=== PATIENT | female | born 1940 | race Caucasian/White ===

== ENCOUNTER 2022-11-29 10:02 | Inpatient (IN) | payer MEDICARE ==
[~2022-11-29] VITALS: Ht 167.6 cm; Wt 77.1 kg
[2022-11-29] MEDS ORDERED: MORPHINE SULFATE 2 MG/1 ML DISP.SYRIN IV ONE (11:00)
[2022-11-29] MEDS ORDERED: ONDANSETRON 4 MG/2 ML VIAL IV ONE (11:00)
[2022-11-29] MEDS ORDERED: ONDANSETRON 4 MG/2 ML VIAL ONE (11:12)
[2022-11-29] MEDS ORDERED: MORPHINE SULFATE 4 MG/1 ML DISP.SYRIN ONE (11:12)
[2022-11-29 11:14] LABS: MEAN CORPUSCULAR HEMOGLOBIN 30.5 uug (24.7-32.8); MEAN CORPUSCULAR VOLUME 92.6 fL (75.5-95.3); PLATELET COUNT (AUTO) 235 K/uL (179-408)
--- NOTE | 2022-11-29 11:20 | NUR ---
Pt medicated for pain as ordered. spoke with the pt and family about plan of care.
[2022-11-29 11:39] LABS: BILIRUBIN,DIRECT 0.1 mg/dL (0.0-0.2); BILIRUBIN,TOTAL 0.4 mg/dL (0.2-1.0); CREATININE 0.8 mg/dL (0.6-1.3); TOTAL PROTEIN, SERUM 6.9 g/dL (6.4-8.2)
[2022-11-29] MEDS ORDERED: hydrALAZINE HCL 20 MG/1 ML VIAL IV PRN (11:45)
[2022-11-29] MEDS ORDERED: LABETALOL HCL 100 MG/20 ML VIAL IV PRN (11:45)
[2022-11-29] MEDS ORDERED: ACETAMINOPHEN 325 MG TABLET PO PRN (11:45)
--- NOTE | 2022-11-29 12:00 | NUR ---
Pt. admitted to M/S , under care of Dr. Meléndez. Room assignment: 308
--- NOTE | 2022-11-29 13:10 | NUR ---
Pt trans to room 308, NAD noted.
[2022-11-29 13:28] VITALS: BP 113/53
[2022-11-29] MEDS: MORPHINE SULFATE 2 MG/1 ML DISP.SYRIN IVP PRN ×3 (13:46→23:45)
[2022-11-29 16:00] VITALS: BP 116/56
[2022-11-29] MEDS: DOCUSATE SODIUM 100 MG CAPSULE PO SCH (17:15)
[2022-11-29] MEDS: IV NS 1000 ML 1,000 ML IV PRN (17:18)
--- NOTE | 2022-11-29 19:30 | NUR ---
Received patient lying in bed. Daughter at bedside. AAOx4. In no apparent distress. Denies any SOB. Complain of pain during mobility. Will provide Morphine 2mg IV PRN per order. IV site on right AC intact and patent. IVF infusing. Discuss NPO after midnight and states understanding. Safety measure initiated and call light within reached.
[2022-11-29 20:00] VITALS: BP 128/54
--- NOTE | 2022-11-29 21:30 | NUR ---
Telephone call to patient son Juve and daughter Nancy and informed of schedule procedure leonidas. and states understanding. Requesting to have nurse call them back once patient is in recovery. Will informed day shift RN leonidas.
[2022-11-30 04:00] VITALS: BP 132/54
[2022-11-30] MEDS: MORPHINE SULFATE 2 MG/1 ML DISP.SYRIN IVP PRN (04:43)
[2022-11-30] MEDS: IV NS 1000 ML 1,000 ML IV PRN (04:43)
--- NOTE | 2022-11-30 06:05 | NUR ---
Morphine 2MG via IV given every 4 hour PRN for complain of left hip pain and effective. IVF continue to infuse on left AC #20G. NPO status. For Left hip surgery this AM. Needs attended to and met. Safety measure maintained and call light within reached.
[2022-11-30 06:16] LABS: MEAN CORPUSCULAR HEMOGLOBIN 30.6 uug (24.7-32.8); PLATELET COUNT (AUTO) 180 K/uL (179-408)
[2022-11-30 06:35] LABS: BILIRUBIN,TOTAL 0.5 mg/dL (0.2-1.0); CREATININE 0.9 mg/dL (0.6-1.3); PHOSPHOROUS 3.3 mg/dL (2.5-4.9); POTASSIUM 4.1 mmol/L (3.5-5.1)
[2022-11-30] MEDS ORDERED: HYDROMORPHONE 2 MG/1 ML DISP.SYRIN ONE (07:30)
[2022-11-30] MEDS ORDERED: FENTANYL CITRATE 100 MCG/2 ML AMPUL ONE (07:30)
--- NOTE | 2022-11-30 07:30 | NUR ---
Isacc at bedside for transport to OR for left femerol neck bipolar replacement. Pt in stable condition, A&OX3, no complaints verbalize, prep for sx, tolerated well.
[2022-11-30] MEDS ORDERED: ROCURONIUM BROMIDE 50 MG/5 ML VIAL ONE (07:31)
[2022-11-30] MEDS ORDERED: MIDAZOLAM HCL 2 MG/2 ML VIAL ONE (07:31)
[2022-11-30] MEDS ORDERED: FAMOTIDINE. 20 MG/2 ML VIAL IV ONE (07:31)
[2022-11-30] MEDS ORDERED: VANCOMYCIN 1000 MG VIAL ONE (08:53)
[2022-11-30] MEDS: DOCUSATE SODIUM 100 MG CAPSULE PO SCH ×2 (09:00→16:24)
[2022-11-30] MEDS ORDERED: GLYCOPYRROLATE 0.2 MG/ML VIAL ONE (10:41)
[2022-11-30] MEDS ORDERED: LIDOCAINE-MPF 2% 5 ML VIAL ONE (10:41)
[2022-11-30] MEDS ORDERED: PROPOFOL 200 MG/20 ML BOTTLE ONE (10:41)
[2022-11-30] MEDS ORDERED: ONDANSETRON 4 MG/2 ML VIAL ONE (10:41)
[2022-11-30] MEDS ORDERED: METOCLOPRAMIDE HCL 10 MG/2 ML VIAL ONE (10:41)
[2022-11-30] MEDS ORDERED: NEOSTIGMINE METHYLSULFATE 10 MG/10 ML VIAL ONE (10:41)
[2022-11-30] MEDS ORDERED: CEFAZOLIN 1 G VIAL ONE (10:41)
[2022-11-30 11:15] VITALS: BP 117/43
--- NOTE | 2022-11-30 11:15 | NUR ---
Pt back to floor s/p left hip femoral neck bipolar replacement, juni well, in no acute distress at present, denies complaints, Singh to gravity, Mepilex dressing to left hip C/D/I, pneumonic boots on, left foot cool to touch, +CSM, +PP, +DP, denies numbness to left foot, wiggle toe w/o difficulties. Regular diet as juni, IVF hang as ordered, family membered notified of pt' condition post sx, will continue to monitor status for change.
[2022-11-30] MEDS ORDERED: HYDROCODONE/APAP 10-325 MG TABLET PO PRN (11:30)
[2022-11-30] MEDS ORDERED: MORPHINE SULFATE 2 MG/1 ML DISP.SYRIN IVP PRN (11:30)
[2022-11-30] MEDS: IV D5W-0.45% NS +20 KCL 1,000 ML IV PRN (12:06)
--- NOTE | 2022-11-30 13:00 | NUR ---
Family member at bedside, pt in stable condition, denies complaints at present,enc to make needs known, ivf infusing as ordered juni well, ate lunch, denies c/o n/v, ward to gravity draining adequate amount of clear paola urine, left hip surgical dressing remains c/d/i, LE immobilize with foam wedge, juni pneumatic CD well, position as per treatment plan.
[2022-11-30 15:51] VITALS: BP 103/44
[2022-11-30] MEDS: CEFAZOLIN 1 G in IV DEXTROSE 5% 50 ML IV SCH (16:24)
--- NOTE | 2022-11-30 19:30 | NUR ---
Received patient lying in bed. Asleep but easily arouse to verbal stimuli. In no apparent distress. Denies any pain or SOB at this time. IV site on right AC intact and patent. IVF infusing. Left hip dressing on incision site intact, dry and clean. Abduction pillow in between legs. Singh catheter intact and draining via gravity. Needs assessed and attended to. Safety measure initiated and call light within reached.
[2022-11-30 20:00] VITALS: BP 110/45
[2022-11-30] MEDS ORDERED: HEPARIN SODIUM,PORCINE 5,000 UNITS/ML VIAL SQ SCH (21:00)
[2022-12-01] MEDS: CEFAZOLIN 1 G in IV DEXTROSE 5% 50 ML IV SCH (00:12)
[2022-12-01] MEDS: IV D5W-0.45% NS +20 KCL 1,000 ML IV PRN (01:48)
[2022-12-01] MEDS: ONDANSETRON 4 MG/2 ML VIAL IV PRN ×2 (01:56→09:51)
[2022-12-01 04:00] VITALS: BP 110/38
--- NOTE | 2022-12-01 06:13 | NUR ---
patient slept through out the night. No complain of pain or SOB. IVF infusing. Abduction pillow in between legs. Reposition for comfort. Singh catheter intact and draining via gravity. Needs attended to and met. Safety measure maintained and call light within reached.
[2022-12-01] MEDS: DOCUSATE SODIUM 100 MG CAPSULE PO SCH (08:21)
[2022-12-01] MEDS ORDERED: HEPARIN SODIUM,PORCINE 5,000 UNITS/ML VIAL SQ SCH (09:00)
[2022-12-01 11:59] VITALS: BP 133/59
[2022-12-01 16:00] VITALS: BP 125/68
--- NOTE | 2022-12-01 16:51 | NUR ---
Patient is alert, oriented x4, no sob, respirations are even nonlabored, skin warm and dry to touch, left hip replacement, precautions are in place. patient is being discharged to [facility]. Addendum: 12/01/22 at 1653 by PILLO NAVARRETE RN RN dressing intact, no active bleeding noted. no acute distress noted.
[2022-12-01] MEDS ORDERED: ENSURE ENLIVE (VAN) 240 ML LIQUID PO SCH (17:00)
[2022-12-01] MEDS ORDERED: RIVA20TA PO (18:40)
[2022-12-01] MEDS ORDERED: DOCU-141 PO (18:40)
[2022-12-01] MEDS ORDERED: HYDR-3980 PO (18:40)
[2022-12-01] MEDS ORDERED: ACET-2154 PO (18:40)
[2022-12-01] MEDS ORDERED: ONDA4TAB5 PO (18:40)
[2022-12-02] MEDS ORDERED: LOVA40TA2 PO (14:20)
[2022-12-02] MEDS ORDERED: LEVO75TA PO (14:20)
[2022-12-02] MEDS ORDERED: LISI1TAB32 PO (14:20)
== END 2022-12-01 16:57 | DRG 522 ==
LOC: ER 10:02 → MEDSURG3 12:26
PROVIDERS: ADMIT Internal Medicine; ATTEND Internal Medicine
PROC: 0SRS0JA Replacement of Left Hip Joint, Femoral Surface with Synthetic Substitute, Uncemented, Open Approach (ICD-10-PCS; principal; 2022-11-30)
DX: S72.032A Displaced midcervical fracture of left femur, initial encounter for closed fracture (principal); E22.2 Syndrome of inappropriate secretion of antidiuretic hormone; W19.XXXA Unspecified fall, initial encounter; Y93.9 Activity, unspecified; Y92.009 Unspecified place in unspecified non-institutional (private) residence as the place of occurrence of the external cause; E86.1 Hypovolemia; I10 Essential (primary) hypertension; Z20.822 Contact with and (suspected) exposure to COVID-19
CPT/HCPCS: 36415; 71045; 73501; 73502; 83690; 84100; 84484; 85025; 85730; 93005; A4663; G0378; J0690; J1170; J1644; J2250; J2270; J2405; J2765; J3010; J3370; J3490; J7040

== ENCOUNTER 2022-12-01 16:59 | Inpatient (IN) | payer MEDICARE ==
[~2022-12-01] VITALS: Ht 167.6 cm; Wt 68.0 kg
[2022-12-01] MEDS ORDERED: ACET-2154 PO (18:40)
[2022-12-01] MEDS ORDERED: ONDA4TAB5 PO (18:40)
[2022-12-01] MEDS ORDERED: DOCU-141 PO (18:40)
[2022-12-01] MEDS ORDERED: RIVA20TA PO (18:40)
[2022-12-01] MEDS ORDERED: HYDR-3980 PO (18:40)
--- NOTE | 2022-12-01 19:30 | NUR ---
Received a 82 yr old female from [facility] converted to rehab with admitting diagnosis of S/Left total hip arthroplasty secondary to a fall on 11/[address] Narayanan. AAOx4 All needs attended. VSS. Lungs CTA. Left hip dressing intact with renetta intact. No acute distress noted. Singh catheter intact draining yellow urine. VSS. #24 Right heplock flushed and patent. No BM noted this shift. Skin intact with some redness on the sacral area. Fall precautions maintained. Siderails up for safety. Denies any pain nor any discomfort. Will monitor patient.
[2022-12-01 20:00] VITALS: BP 129/56
[2022-12-02 04:29] VITALS: BP 138/67
[2022-12-02 07:50] VITALS: BP 127/60
[2022-12-02] MEDS: OXYCODONE HCL 5 MG TABLET PO PRN (08:57)
[2022-12-02] MEDS ORDERED: LOVA40TA2 PO (14:20)
[2022-12-02] MEDS ORDERED: LEVO75TA PO (14:20)
[2022-12-02] MEDS ORDERED: LISI1TAB32 PO (14:20)
[2022-12-02 16:00] VITALS: BP 103/61
[2022-12-02] MEDS: MIRALAX 17 GM POWD.PACK PO SCH (17:09)
[2022-12-02] MEDS: ONDANSETRON ODT 4 MG TAB.RAPDIS SL PRN (17:10)
[2022-12-02] MEDS: RIVAROXABAN 10 MG TABLET PO SCH (17:10)
[2022-12-02] MEDS ORDERED: ONDANSETRON HCL 4 MG TABLET PO PRN (17:15)
[2022-12-02] MEDS ORDERED: HYDROCODONE/APAP 10-325 MG TABLET PO PRN (17:15)
[2022-12-02] MEDS ORDERED: Medication Not On Formulary EA (Rivaroxaban (Xarelto) 10 MG) PO SCH (17:15)
[2022-12-02] MEDS ORDERED: ACETAMINOPHEN 325 MG TABLET-SA PATIENTS-PAIN ONLY PO PRN (17:15)
--- NOTE | 2022-12-02 18:22 | NUR ---
no events noted during shift
[2022-12-02] MEDS: ATORVASTATIN 10 MG TABLET PO SCH (21:36)
[2022-12-03] MEDS: LEVOTHYROXINE SODIUM 75 MCG TABLET PO SCH (07:03)
--- NOTE | 2022-12-03 07:41 | NUR ---
Patient is stable no behavior issues. Patient is compliant with meds. Will continue to monitor patient for safety.
[2022-12-03 07:52] VITALS: BP 141/63
[2022-12-03] MEDS ORDERED: Medication Not On Formulary EA (Lisinopril/HCTZ (Lisinopril-Hctz 10-12.5 Mg Tab) 1 EACH) PO SCH (09:00)
[2022-12-03] MEDS: DOCUSATE SODIUM 100 MG CAPSULE PO SCH ×2 (09:11→17:42)
[2022-12-03] MEDS: MIRALAX 17 GM POWD.PACK PO SCH (09:11)
[2022-12-03] MEDS: HYDROCHLOROTHIAZIDE 12.5 MG CAPSULE PO SCH (09:11)
[2022-12-03] MEDS: LISINOPRIL 10 MG TABLET PO SCH (09:12)
[2022-12-03 11:52] VITALS: BP 134/66
[2022-12-03] MEDS: OXYCODONE HCL 5 MG TABLET PO PRN (13:34)
--- NOTE | 2022-12-03 14:19 | NUR ---
Patient is currently comfortable. Alert and oriented x4. She is calm and relaxed with no apparent acute distress. Patient had physical Therapy today, Oxycontin given before hand. She is breathing normal on room air. All morning medications taken whole. No new concerns at this time. Will continue to monitor.
--- NOTE | 2022-12-03 15:28 | NUR ---
Dressing changed with no discomfort. Patient remains comfortable. Will continue to monitor.
[2022-12-03 15:48] VITALS: BP 120/65
[2022-12-03] MEDS: RIVAROXABAN 10 MG TABLET PO SCH (17:42)
--- NOTE | 2022-12-03 18:19 | NUR ---
patient is voiding well. no bladder discomfort noted
[2022-12-03 20:00] VITALS: BP 116/56
[2022-12-03] MEDS: ATORVASTATIN 10 MG TABLET PO SCH (20:22)
[2022-12-04] VITALS: BP 144/70
[2022-12-04] MEDS: ONDANSETRON ODT 4 MG TAB.RAPDIS SL PRN ×2 (00:21→10:38)
[2022-12-04] MEDS ORDERED: MAG HYDROX/AL HYDROX/SIMETH 30 ML LIQUID UDC PO PRN (00:30)
[2022-12-04 04:00] VITALS: BP 112/54
[2022-12-04] MEDS: LEVOTHYROXINE SODIUM 75 MCG TABLET PO SCH (06:19)
[2022-12-04 07:35] VITALS: BP 130/61
--- NOTE | 2022-12-04 07:53 | NUR ---
0730-Patient in bed at this time, awake, alert/ox4, able to make needs known. Patient watching TV at this time. On R/A with no respiratory distress noted, patient denies any pain. Bed side table and needed items in place and accessible to patient. Call light within reach and encouraged to use it every time help is needed with good understanding.
[2022-12-04] MEDS: MIRALAX 17 GM POWD.PACK PO SCH (08:37)
[2022-12-04] MEDS: LISINOPRIL 10 MG TABLET PO SCH (08:37)
[2022-12-04] MEDS: HYDROCHLOROTHIAZIDE 12.5 MG CAPSULE PO SCH (08:37)
[2022-12-04] MEDS: DOCUSATE SODIUM 100 MG CAPSULE PO SCH ×2 (08:37→16:20)
[2022-12-04] MEDS: OXYCODONE HCL 5 MG TABLET PO PRN (08:37)
--- NOTE | 2022-12-04 09:07 | NUR ---
INDIVIDUALIZED PLAN OF CARE
[2022-12-04 15:37] VITALS: BP 118/51
[2022-12-04] MEDS: RIVAROXABAN 10 MG TABLET PO SCH (17:33)
[2022-12-04] MEDS ORDERED: BISACODYL 10 MG SUPP.RECT RC PRN (18:15)
--- NOTE | 2022-12-04 18:34 | NUR ---
Patient alert and oriented, verbalizes needs and follows directions. OOB daily with rehab for PT/OT skilled services as ordered juni. well and patient actively able to participate in therapy, rec'd a shower by rehab staff/OT. Assisted patient with ADLS and at all times through out the shift. Care provided at routine intervals/PRN. LT hip surgical wound site treatment provided as ordered. Affected area with no bleeding or drainage noted renetta still in place, appears to be healing well. Routine medication administered as scheduled and ordered by MD during the shift. All needs anticipated and met. Safety precautions observed; routine rounds and frequent visual checks done.
--- NOTE | 2022-12-04 18:57 | NUR ---
Patient has not been able to remove or have a BM, rectal suppository administered at this time. Endorsed to incoming RN for proper follow up.
[2022-12-04 20:00] VITALS: BP 119/51
[2022-12-04] MEDS: ATORVASTATIN 10 MG TABLET PO SCH (20:07)
[2022-12-05] MEDS: ONDANSETRON ODT 4 MG TAB.RAPDIS SL PRN (00:12)
[2022-12-05 04:00] VITALS: BP 114/55
--- NOTE | 2022-12-05 04:38 | NUR ---
Awake alert and oriented x4. Patient S/P left total hip arthroplasty. Left hip dressing intact with renetta. Dressing clean dry and intact. Denies any pain nor any discomfort. Fall precautions maintained. Had a very large BM x3 Kept clean and dry Will monitor patient. VSS. Purewick to suction with yellow urine noted. Abduction pillow in between legs. Siderails up for safety. Addendum: 12/05/22 at 0535 by SIVA HDEZ RN Pt c/o feeling nauseas. Relief by ZOFRAN PRN given. Pt reports "feeling better"
--- NOTE | 2022-12-05 05:57 | NUR ---
SBAR/RN NOTE: Pt. is stable with VS. and was able to tolerate oral meds. Fall precautions maintained with siderails up for safety. Pt. was able to have BM x 3. Denies any pain nor any discomfort. Continuing to attend to pt. needs and
[2022-12-05] MEDS: LEVOTHYROXINE SODIUM 75 MCG TABLET PO SCH (06:19)
[2022-12-05 07:50] VITALS: BP 119/57
--- NOTE | 2022-12-05 08:00 | NUR ---
Received pt. lying in bed awake, alert and oriented. No signs of distress, no complain. Needs attended
[2022-12-05] MEDS: HYDROCHLOROTHIAZIDE 12.5 MG CAPSULE PO SCH ×2 (08:46→08:53)
[2022-12-05] MEDS: DOCUSATE SODIUM 100 MG CAPSULE PO SCH ×2 (08:46→16:54)
[2022-12-05] MEDS: LISINOPRIL 10 MG TABLET PO SCH (08:49)
[2022-12-05] MEDS: MIRALAX 17 GM POWD.PACK PO SCH (08:49)
[2022-12-05] MEDS: ENSURE ENLIVE (VAN) 240 ML LIQUID PO SCH (08:49)
[2022-12-05] MEDS: OXYCODONE HCL 5 MG TABLET PO PRN (13:44)
--- NOTE | 2022-12-05 13:54 | NUR ---
INTERDISCIPLINARY TEAM CONFERENCE
--- NOTE | 2022-12-05 14:45 | NUR ---
Seen patient asleep in bed, comfortably resting. Tolerated oral medication and food. No signs of distress, on room. Observed accordingly.
[2022-12-05 15:33] VITALS: BP 95/45
[2022-12-05] MEDS: RIVAROXABAN 10 MG TABLET PO SCH (17:09)
[2022-12-05 20:00] VITALS: BP 105/37
[2022-12-05] MEDS: ATORVASTATIN 10 MG TABLET PO SCH (20:13)
--- NOTE | 2022-12-05 20:13 | NUR ---
due po medication given and tolerated with water. hob up .call light placed with in reach and aspiration precaution observed.
--- NOTE | 2022-12-05 20:13 | NUR ---
patient in bed AAOX4 ,no respiratory distress noted breathing even and unlabored, due po medication Lipitor given and patient took medication with water tolerated .patient verbalized that she did not sleep well last night c/o she had bm x 6 times . advised patient to call for assistance and help .
--- NOTE | 2022-12-05 21:45 | NUR ---
patient called requesting bedpan had moderate form stool brownish in color changed soiled linen and pads changed pure wick it got soiled , adduction pillow placed to bilateral lower extremities strap to patient leg.
--- NOTE | 2022-12-05 23:30 | NUR ---
patient in bed asleep easily arousable denies pain or any discomfort advised to call for assistance or help call light placed with reach .pure wick in placed to suction .
[2022-12-06] VITALS: BP 110/55
--- NOTE | 2022-12-06 04:00 | NUR ---
patient called requesting for a bedpan ,patient had another bm soft moderate in amt. changed soiled linens and gown z guard applied to sacral and anal area .
[2022-12-06] MEDS: LEVOTHYROXINE SODIUM 75 MCG TABLET PO SCH (06:32)
[2022-12-06 07:30] VITALS: BP 103/48
[2022-12-06] MEDS: DOCUSATE SODIUM 100 MG CAPSULE PO SCH ×2 (08:20→17:20)
[2022-12-06] MEDS: OXYCODONE HCL 5 MG TABLET PO PRN ×2 (08:20→13:17)
[2022-12-06] MEDS: HYDROCHLOROTHIAZIDE 12.5 MG CAPSULE PO SCH (08:20)
[2022-12-06] MEDS: ENSURE ENLIVE (VAN) 240 ML LIQUID PO SCH (08:21)
[2022-12-06] MEDS: LISINOPRIL 10 MG TABLET PO SCH ×2 (08:21→08:22)
[2022-12-06] MEDS: MIRALAX 17 GM POWD.PACK PO SCH (08:21)
[2022-12-06 16:00] VITALS: BP 130/42
[2022-12-06] MEDS: RIVAROXABAN 10 MG TABLET PO SCH (17:23)
--- NOTE | 2022-12-06 19:17 | NUR ---
Patient A/Ox4, verbalizes needs promptly and timely. Medicated PRN for pain as ordered by MD based on her pain level needs with help, kept patient free of pain during shift, able to actively participate in therapy PT/OT skilled services with no c/o pain or discomforts. Assist with ADLs and as at all times. No changes in condition from baseline noted. Treatment to left hip surgical site done as ordered; no s/s of infection noted. All needs anticipated and met. Endorsed to relieving NOC RN.
[2022-12-06 20:00] VITALS: BP 133/58
[2022-12-06] MEDS: ATORVASTATIN 10 MG TABLET PO SCH (21:23)
--- NOTE | 2022-12-06 23:00 | NUR ---
1900- The Patient is aox4, verbalizes needs promptly and timely. The patient has no IV access. Assist with ADLs. No changes in condition from baseline noted. Left hip surgical site is clean, dry, and intact. The patient has no sob or complains of pain. Family at bedside. No s/s of infection noted. All needs anticipated and met. Call light within reach, two side rails up, bed at lowest position, bed alarm on. Will continue to monitor throughout the shift. 2100- The patient request for a warm blanket. Item is given to the patient. The patient has no complains of pain. Will continue to monitor throughout the shift. 0100- The patient is asleep and has no complains of pain or sob. Will continue to monitor throughout the shift.
[2022-12-07 06:01] VITALS: BP 118/76
[2022-12-07] MEDS: LEVOTHYROXINE SODIUM 75 MCG TABLET PO SCH (06:16)
[2022-12-07 07:35] VITALS: BP 122/48
[2022-12-07] MEDS: OXYCODONE HCL 5 MG TABLET PO PRN (08:24)
[2022-12-07] MEDS: LISINOPRIL 10 MG TABLET PO SCH (08:24)
[2022-12-07] MEDS: HYDROCHLOROTHIAZIDE 12.5 MG CAPSULE PO SCH (08:25)
[2022-12-07] MEDS: DOCUSATE SODIUM 100 MG CAPSULE PO SCH ×2 (08:25→16:28)
[2022-12-07] MEDS: MIRALAX 17 GM POWD.PACK PO SCH (08:25)
[2022-12-07] MEDS: ENSURE ENLIVE (VAN) 240 ML LIQUID PO SCH (08:26)
[2022-12-07 15:58] VITALS: BP 124/51
[2022-12-07] MEDS: RIVAROXABAN 10 MG TABLET PO SCH (17:18)
--- NOTE | 2022-12-07 18:00 | NUR ---
Patient A/Ox4, verbalizes needs and follows directions. Patient in her usual baseline stable conditions. No MARIO noted during shift, with good appetite, ate meals and took oral fluids with no c/o GI discomforts. Participated in rehab with her PT/OT skilled services and actively able to participate in therapy. Patient kept comfortable and free of pain during shift. Assisted with personal care/hygiene at routine intervals/to apply bed pain as needed. Patient voided well/had a BM during shift. All needs attended well and met.
[2022-12-07] MEDS: ONDANSETRON ODT 4 MG TAB.RAPDIS SL PRN (18:46)
--- NOTE | 2022-12-07 19:30 | NUR ---
Left hip surgical site dressing changed as ordered.
[2022-12-07 20:00] VITALS: BP 111/48
[2022-12-07] MEDS: ATORVASTATIN 10 MG TABLET PO SCH (22:57)
--- NOTE | 2022-12-07 23:00 | NUR ---
1900- The Patient is aox4, verbalizes needs promptly and timely. The patient has no IV access. No changes in condition from baseline noted. Left hip surgical site is clean, dry, and intact. The patient has no sob or complains of pain. No s/s of infection noted. Call light within reach, two side rails up, bed at lowest position, bed alarm on. Will continue to monitor throughout the shift. 2200- The patient request for an extra pillow. Item is given to the patient. The patient has no complains of pain. Will continue to monitor throughout the shift. 0200- The patient is asleep and has no complains of pain or sob. Will continue to monitor throughout the shift.
[2022-12-08 04:00] VITALS: BP 129/57
[2022-12-08] MEDS: LEVOTHYROXINE SODIUM 75 MCG TABLET PO SCH (06:22)
[2022-12-08] MEDS: LISINOPRIL 10 MG TABLET PO SCH (09:13)
[2022-12-08] MEDS: DOCUSATE SODIUM 100 MG CAPSULE PO SCH ×2 (09:13→17:32)
[2022-12-08] MEDS: MIRALAX 17 GM POWD.PACK PO SCH (09:13)
[2022-12-08] MEDS: HYDROCHLOROTHIAZIDE 12.5 MG CAPSULE PO SCH (09:13)
[2022-12-08] MEDS: ENSURE ENLIVE (VAN) 240 ML LIQUID PO SCH (09:13)
[2022-12-08] MEDS: RIVAROXABAN 10 MG TABLET PO SCH (17:31)
[2022-12-08 20:44] VITALS: BP 114/52
[2022-12-08] MEDS: ATORVASTATIN 10 MG TABLET PO SCH (21:32)
--- NOTE | 2022-12-08 23:00 | NUR ---
1910- The Patient is aox4, verbalizes needs promptly and timely. The patient has no IV access. No changes in condition from baseline noted. The patient has no sob or complains of pain. No s/s of infection noted. Call light within reach, two side rails up, bed at lowest position, bed alarm on. Will continue to monitor throughout the shift. 2200- The patient request for an extra pillow. Item is given to the patient. The patient has no complains of pain. Changed left hip dressing, dressing is clean,dry, and intact. Will continue to monitor throughout the shift. 0200- The patient is asleep and has no complains of pain or sob. Will continue to monitor throughout the shift.
[2022-12-09 04:00] VITALS: BP 122/54
[2022-12-09] MEDS: LEVOTHYROXINE SODIUM 75 MCG TABLET PO SCH (06:50)
[2022-12-09 07:35] VITALS: BP 109/48
[2022-12-09] MEDS: HYDROCHLOROTHIAZIDE 12.5 MG CAPSULE PO SCH (09:00)
[2022-12-09] MEDS: LISINOPRIL 10 MG TABLET PO SCH (09:00)
--- NOTE | 2022-12-09 09:30 | NUR ---
MOD A using FWW. PT had a bm x 1 formed stool noted. Pt refused to take her b/p meds explained purpose of b/p meds and consequence of not taking them - ie high b/p . Pt agreeable to recheck b/p in the afternoon and will take her b/p meds if b/p is elevated. Sat Pt in chair encouraged pt to sit up for at least 1 hr.
[2022-12-09] MEDS: DOCUSATE SODIUM 100 MG CAPSULE PO SCH ×2 (09:45→16:59)
[2022-12-09] MEDS: MIRALAX 17 GM POWD.PACK PO SCH (09:46)
[2022-12-09] MEDS: ENSURE ENLIVE (VAN) 240 ML LIQUID PO SCH (09:48)
[2022-12-09 14:15] VITALS: BP 106/43
[2022-12-09 15:56] VITALS: BP 130/54
[2022-12-09] MEDS: RIVAROXABAN 10 MG TABLET PO SCH (17:00)
--- NOTE | 2022-12-09 19:18 | NUR ---
Receive pt in bed a/a/ox4. S/P Left Hip ORIF. Denies pain or discomforts at this time. Pt educated on hospital protocol fall prevention plan. verbalize understanding. Will continue pts plan of care
[2022-12-09] MEDS: ATORVASTATIN 10 MG TABLET PO SCH (21:25)
--- NOTE | 2022-12-10 01:37 | NUR ---
Relief Nurse: Received report from SHERRELL Holden for continuity of care. Patient currently in bed at lowest position, sr upx2, call light within reach. Will continue to monitor and observe patient. Patient is here for a hip fx s/p total hip arthoplasty.
[2022-12-10] MEDS: LEVOTHYROXINE SODIUM 75 MCG TABLET PO SCH (06:31)
--- NOTE | 2022-12-10 07:30 | NUR ---
Pt had an uneventful night. Report given to Freddy to continue pts plan of care.
[2022-12-10 07:55] VITALS: BP 120/55
[2022-12-10] MEDS: ACETAMINOPHEN 325 MG TABLET PO PRN (08:38)
[2022-12-10] MEDS: HYDROCHLOROTHIAZIDE 12.5 MG CAPSULE PO SCH (08:39)
[2022-12-10] MEDS: LISINOPRIL 10 MG TABLET PO SCH (08:39)
[2022-12-10] MEDS: DOCUSATE SODIUM 100 MG CAPSULE PO SCH ×2 (08:39→16:29)
[2022-12-10] MEDS: MIRALAX 17 GM POWD.PACK PO SCH (08:39)
[2022-12-10] MEDS: ENSURE ENLIVE (VAN) 240 ML LIQUID PO SCH (08:40)
--- NOTE | 2022-12-10 09:23 | NUR ---
0730-Rec'd patient in bed, awake, A/Ox4, watching TV and scanning her cell phone & iPOD as well. Patient smiling and greeting good morning, on R/A and juni. well. No s/s of hypo/HTN, patient denies pain/headache/dizziness. Call light at reach, encouraged to use it every time help is needed with good understanding. 0900-Scheduled/due medication administered; no ASE noted, oral fluids taken well, no n/v noted; patient declined to take Hydrochlolrithiazide medication. Risks vs benefits explained and offered x3 but patient still refused medication. Will monitor and follow up according plan of care.
[2022-12-10 16:30] VITALS: BP 138/51
[2022-12-10] MEDS: RIVAROXABAN 10 MG TABLET PO SCH (17:12)
--- NOTE | 2022-12-10 19:13 | NUR ---
Assisted with ADLS and at all times. No MARIO from baseline status. LT hip surgical site dressing changed as ordered, juni. well, denies pain. Care provided at routine intervals. Routine rounds done and frequent visual checks done. All needs anticipated and met. Endorsed to incoming relieving RN.
[2022-12-10] MEDS: ATORVASTATIN 10 MG TABLET PO SCH (20:38)
[2022-12-10 20:41] VITALS: BP 116/51
[2022-12-11 04:00] VITALS: BP 129/58
[2022-12-11] MEDS: LEVOTHYROXINE SODIUM 75 MCG TABLET PO SCH (06:21)
[2022-12-11 07:32] LABS: HEMATOCRIT 33.1 % (31.2-41.9); MEAN CORPUSCULAR HEMOGLOBIN 30.8 uug (24.7-32.8); MEAN CORPUSCULAR VOLUME 91.7 fL (75.5-95.3); PLATELET COUNT (AUTO) 349 K/uL (179-408)
[2022-12-11 07:46] VITALS: BP 114/55
[2022-12-11 07:57] LABS: BILIRUBIN,TOTAL 0.3 mg/dL (0.2-1.0); CREATININE 0.8 mg/dL (0.6-1.3); MAGNESIUM 1.9 mg/dL (1.8-2.4); PHOSPHOROUS 3.6 mg/dL (2.5-4.9); POTASSIUM 4.3 mmol/L (3.5-5.1)
[2022-12-11] MEDS: DOCUSATE SODIUM 100 MG CAPSULE PO SCH ×2 (08:15→16:31)
[2022-12-11] MEDS: LISINOPRIL 10 MG TABLET PO SCH (08:16)
[2022-12-11] MEDS: MIRALAX 17 GM POWD.PACK PO SCH (08:16)
[2022-12-11] MEDS: ACETAMINOPHEN 325 MG TABLET PO PRN (08:55)
[2022-12-11] MEDS: ENSURE ENLIVE (VAN) 240 ML LIQUID PO SCH (09:12)
--- NOTE | 2022-12-11 09:58 | NUR ---
0730-Upon shift exchanged, patient in bed. No respiratory distress, denies pain. Patient awake and watching TV. No unusual observations. Call light at reach. 0900-Scheduled medications administered with no ASE noted. Oral fluids taken well.
[2022-12-11] MEDS: ONDANSETRON ODT 4 MG TAB.RAPDIS SL PRN (11:03)
[2022-12-11 13:05] LABS: THYROID STIMULATING HORMONE 2.172 mIU/mL (0.358-3.740)
[2022-12-11 16:57] VITALS: BP 113/42
[2022-12-11] MEDS: RIVAROXABAN 10 MG TABLET PO SCH (17:37)
--- NOTE | 2022-12-11 19:08 | NUR ---
Left hip surgical site healing well, no bleeding or s/s of infection noted. Treatment done as ordered/picture updated; endorsed to incoming relieving RN.
[2022-12-11 20:22] VITALS: BP 112/50
[2022-12-11] MEDS: ATORVASTATIN 10 MG TABLET PO SCH (21:07)
[2022-12-12 04:27] VITALS: BP 116/52
[2022-12-12] MEDS: LEVOTHYROXINE SODIUM 75 MCG TABLET PO SCH (06:15)
--- NOTE | 2022-12-12 06:49 | NUR ---
Slept well throughout the night, no acute distress noted. Denies any pain/discomfort. Assisted to the BR for toileting needs.
[2022-12-12 07:45] VITALS: BP 125/55
[2022-12-12] MEDS: DOCUSATE SODIUM 100 MG CAPSULE PO SCH ×2 (08:01→17:47)
[2022-12-12] MEDS: MIRALAX 17 GM POWD.PACK PO SCH (08:02)
[2022-12-12] MEDS: LISINOPRIL 10 MG TABLET PO SCH (08:02)
[2022-12-12] MEDS: ENSURE ENLIVE (VAN) 240 ML LIQUID PO SCH (08:03)
[2022-12-12] MEDS: HYDROCHLOROTHIAZIDE 12.5 MG CAPSULE PO SCH (08:03)
--- NOTE | 2022-12-12 14:14 | NUR ---
INTERDISCIPLINARY TEAM CONFERENCE
[2022-12-12] MEDS: ACETAMINOPHEN 325 MG TABLET PO PRN (14:50)
[2022-12-12 15:19] VITALS: BP 117/44
[2022-12-12] MEDS: RIVAROXABAN 10 MG TABLET PO SCH (17:47)
--- NOTE | 2022-12-12 19:39 | NUR ---
RECEIVED REPORT FROM SHERRELL BONE, RILEY SHIFT. PATIENT IS ALERT & ORIENTED X4, AND SPEAKS UZBEK. VITAL SIGNS STABLE. PATIENT HAD COMPLAINT OF PAIN. RN GAVE PAIN MEDICATIONS ORDERED BY MD. PATIENT EXPRESSED COMFORTABLE. PATIENT PARTICIPATES WITH PHYSICAL AND OCCUPATIONAL THERAPY SCHEDULED. PATIENT TOLERATES PO AND DIET WELL. NO ACUTE DISTRESS. ALL NEEDS MET AT THIS TIME. FALL PRECAUTIONS OBSERVED. CALL LIGHT WITHIN REACH. ENDORSED CARE TO SHERRELL BONE, RILEY SHIFT FOR CONTINUATION OF CARE.
[2022-12-12 20:02] VITALS: BP 119/42
[2022-12-12] MEDS: ATORVASTATIN 10 MG TABLET PO SCH (20:47)
[2022-12-13 06:21] VITALS: BP 126/58
[2022-12-13] MEDS: LEVOTHYROXINE SODIUM 75 MCG TABLET PO SCH (06:46)
[2022-12-13 07:48] VITALS: BP 125/48
[2022-12-13] MEDS: ENSURE ENLIVE (VAN) 240 ML LIQUID PO SCH (09:04)
[2022-12-13] MEDS: DOCUSATE SODIUM 100 MG CAPSULE PO SCH ×2 (09:04→17:02)
[2022-12-13] MEDS: LISINOPRIL 10 MG TABLET PO SCH (09:05)
[2022-12-13] MEDS: HYDROCHLOROTHIAZIDE 12.5 MG CAPSULE PO SCH (09:05)
[2022-12-13] MEDS: MIRALAX 17 GM POWD.PACK PO SCH (09:05)
[2022-12-13 15:03] VITALS: BP 110/48
[2022-12-13] MEDS: RIVAROXABAN 10 MG TABLET PO SCH (17:04)
[2022-12-13 20:00] VITALS: BP 116/53
[2022-12-13] MEDS: ATORVASTATIN 10 MG TABLET PO SCH (21:12)
[2022-12-14 04:00] VITALS: BP_SYST 116; BP_SYST 132; BP_DIAS 51; BP_DIAS 53
[2022-12-14] MEDS: LEVOTHYROXINE SODIUM 75 MCG TABLET PO SCH (07:43)
[2022-12-14 07:54] VITALS: BP 128/59
[2022-12-14] MEDS: HYDROCHLOROTHIAZIDE 12.5 MG CAPSULE PO SCH (08:26)
[2022-12-14] MEDS: LISINOPRIL 10 MG TABLET PO SCH (08:27)
[2022-12-14] MEDS: DOCUSATE SODIUM 100 MG CAPSULE PO SCH ×2 (08:27→17:21)
[2022-12-14] MEDS: MIRALAX 17 GM POWD.PACK PO SCH (08:27)
[2022-12-14] MEDS: ACETAMINOPHEN 325 MG TABLET PO PRN (08:50)
[2022-12-14] MEDS: ENSURE ENLIVE (VAN) 240 ML LIQUID PO SCH (09:31)
[2022-12-14 15:03] VITALS: BP 116/45
[2022-12-14] MEDS: RIVAROXABAN 10 MG TABLET PO SCH (17:22)
--- NOTE | 2022-12-14 17:38 | NUR ---
Pt. is alert and oriented x4. compliance with the care given. Has been stable through out the shift. No c/o pain. call light within normal limit. All safety measure applied. Will keep monitoring the patient.
[2022-12-14] MEDS: ATORVASTATIN 10 MG TABLET PO SCH (20:12)
[2022-12-14 20:22] VITALS: BP 129/48
[2022-12-15 04:10] VITALS: BP 122/50
[2022-12-15] MEDS: LEVOTHYROXINE SODIUM 75 MCG TABLET PO SCH (06:04)
--- NOTE | 2022-12-15 06:06 | NUR ---
Slept comfortably through out the night. No acute distress noted. Denies any pain or discomfort. Assisted pt to the bathroom. Kept clean and dry. Vital signs stable. All needs attended. Call light within reach. Safety precautions maintained.
[2022-12-15 08:01] VITALS: BP 127/55
[2022-12-15] MEDS: HYDROCHLOROTHIAZIDE 12.5 MG CAPSULE PO SCH (09:25)
[2022-12-15] MEDS: DOCUSATE SODIUM 100 MG CAPSULE PO SCH (09:25)
[2022-12-15] MEDS: MIRALAX 17 GM POWD.PACK PO SCH (09:25)
[2022-12-15] MEDS: ENSURE ENLIVE (VAN) 240 ML LIQUID PO SCH (09:26)
[2022-12-15 09:29] VITALS: BP 129/69
[2022-12-15] MEDS: LISINOPRIL 10 MG TABLET PO SCH (09:29)
--- NOTE | 2022-12-15 10:47 | NUR ---
Receive patient comfortably awake in bed. She is alert and oriented x4, made eye contact and can verbalize her need. Denied pain when asked. She is calm and relax currently. All medications taken whole. She is full code. Allergies to Aspirin and on regular diet. She came from home with s/p left total hip replacement. Jay removed 2 days ago, surgeries on 12/01/22. Patient is going home today via private transport around 2-3pm today. Patient will be transported by her daughter Suyapa or son Juve will be picking her up. She is breathing normal on room air with no acute distress. Respiration even and unlabored. Stable with no new changes or concerns. Sn, will continue to monitor.
--- NOTE | 2022-12-15 15:26 | NUR ---
patient got picked up at 3pm by her son. Patient discharged home.
== END 2022-12-15 15:15 | disposition home health service (06) | DRG 559 ==
PROVIDERS: ADMIT Physical Medicine & Rehabilitation Pain Medicine; ATTEND Physical Medicine & Rehabilitation Pain Medicine
DX: S72.002D Fracture of unspecified part of neck of left femur, subsequent encounter for closed fracture with routine healing (principal); E43 Unspecified severe protein-calorie malnutrition; E87.3 Alkalosis; W18.30XD Fall on same level, unspecified, subsequent encounter; I10 Essential (primary) hypertension; E03.9 Hypothyroidism, unspecified; E78.5 Hyperlipidemia, unspecified; E86.1 Hypovolemia; Z88.6 Allergy status to analgesic agent; Z96.642 Presence of left artificial hip joint
CPT/HCPCS: 36415; 83735; 84100; 84443; 85025; 97535-GO-CO; A6209; Q0162